=== PATIENT | female | born 1935 | race Hispanic/Latino ===

== ENCOUNTER 2017-08-03 00:13 | Emergency (ER) | payer MEDICARE, OTHER ==
[2017-08-03 00:14] VITALS: BMI 36.6
[2017-08-03 01:15] VITALS: BP 142/80; PULSE 94; RESP 18; TEMP 97.6; O2SAT 97
--- NOTE | 2017-08-03 01:33 | ED PDOC ---
Arrival/HPI - General Chief Complaint: High Blood Sugar Time Seen by Provider: 08/03/17 01:11 Historian: Patient - History of Present Illness Narrative History of Present Illness (Text): 08/03/17 01:31 Naheed Vicente is an 82 year old female, whose past medical history includes hypertension, pacemaker, diabetes, and cholecystectomy, who presents to the emergency department complaining of high blood sugar, anxiety, and headaches today. Patient denies any fever, chills, chest pain, shortness of breath, nausea , vomiting, diarrhea, back pain, neck pain, headache, dizziness, or any other complaints. Time/Duration: Prior to Arrival Symptom Onset: Gradual Symptom Course: Unchanged Activities at Onset: Light Context: Home Past Medical History - Provider Review Nursing Documentation Reviewed: Yes - Infectious Disease Hx of Infectious Diseases: None - Tetanus Immunization Tetanus Immunization: Unknown - Reproductive Menopause: Yes - Cardiac Hx Hypertension: Yes Hx Pacemaker: Yes (11/2008) - Pulmonary Hx Respiratory Disorders: No - Neurological Hx Neurological Disorder: No - HEENT Hx HEENT Disorder: No - Renal Hx Renal Disorder: No - Endocrine/Metabolic Hx Endocrine Disorders: No Hx Diabetes Mellitus Type 2: Yes - Hematological/Oncological Hx Blood Disorders: No - Integumentary Hx Dermatological Disorder: No - Musculoskeletal/Rheumatological Hx Arthritis: Yes - Gastrointestinal Hx Gastrointestinal Disorders: No - Genitourinary/Gynecological Hx Genitourinary Disorders: No - Psychiatric Hx Depression: No Hx Emotional Abuse: No Hx Physical Abuse: No Hx Substance Use: No - Surgical History Hx Cholecystectomy: Yes Other/Comment: pacemaker/aortic heart valve - Suicidal Assessment Feels Threatened In Home Enviroment: No Family/Social History - Physician Review Nursing Documentation Reviewed: Yes Family/Social History: Unknown Family HX Smoking Status: Never Smoked Hx Alcohol Use: No Hx Substance Use: No Hx Substance Use Treatment: No Allergies/Home Meds Allergies/Adverse Reactions: Allergies No Known Allergies Allergy (Verified 08/03/17 01:16) Home Medications: Home Meds Medication Instructions Recorded Confirmed Atorvastatin [Lipitor] 20 mg PO DAILY 03/11/13 08/03/17 Fenofibrate [Tricor] 145 mg PO DAILY 03/11/13 08/03/17 GlipiZIDE [Glucotrol] 5 mg PO TID 03/11/13 08/03/17 SITagliptin [Januvia] 25 mg PO DAILY 03/11/13 08/03/17 Warfarin [Coumadin] 20 mg PO DAILY 03/11/13 08/03/17 ALPRAZolam [Xanax] 0.25 mg PO Q6 PRN 08/03/17 08/03/17 Calcium Carbonate [Caltrate 600] 600 mg PO DAILY 08/03/17 08/03/17 Calcium/Magnesium [Calcium with 1 each PO DAILY 08/03/17 08/03/17 Magnesium Tab] Cyanocobalamin (Vitamin B-12) 1,000 mcg PO DAILY 08/03/17 08/03/17 [Vitamin B-12] Digoxin [Lanoxin] 0.25 mg PO DAILY 08/03/17 08/03/17 Furosemide [Lasix] 40 mg PO DAILY 08/03/17 08/03/17 Gabapentin [Neurontin] 100 mg PO BID 08/03/17 08/03/17 GlipiZIDE [Glipizide] 5 mg PO TID 08/03/17 08/03/17 Metoprolol Tartrate [Lopressor] 50 mg PO BID 08/03/17 08/03/17 Valsartan [Diovan] 320 mg PO DAILY 08/03/17 08/03/17 Review of Systems - Physician Review All systems were reviewed & negative as marked: Yes - Review of Systems Constitutional: Normal Eyes: Normal ENT: Normal Respiratory: Normal. absent: SOB, Cough Cardiovascular: Normal. absent: Chest Pain Gastrointestinal: Normal. absent: Abdominal Pain, Diarrhea, Nausea, Vomiting Genitourinary Female: Normal. absent: Dysuria, Frequency, Hematuria, Urine Output Changes Musculoskeletal: Normal. absent: Back Pain, Neck Pain Skin: Normal. absent: Rash Neurological: Headache Endocrine: Normal Hemo/Lymphatic: Normal Psychiatric: Anxiety Physical Exam Vital Signs Reviewed: Yes Vital Signs Temp Pulse Resp BP Pulse Ox 08/03/17 01:10 97.6 F 94 H 18 142/80 97 Temperature: Afebrile Blood Pressure: Normal Pulse: Regular Respiratory Rate: Normal Appearance: Positive for: Well-Appearing, Non-Toxic, Comfortable Pain Distress: None Mental Status: Positive for: Alert and Oriented X 3 Finger Stick Blood Glucose: 215 - Systems Exam Head: Present: Atraumatic, Normocephalic Pupils: Present: PERRL Extroacular Muscles: Present: EOMI Conjunctiva: Present: Normal Mouth: Present: Moist Mucous Membranes Neck: Present: Normal Range of Motion Respiratory/Chest: Present: Clear to Auscultation, Good Air Exchange. No: Respiratory Distress, Accessory Muscle Use Cardiovascular: Present: Regular Rate and Rhythm, Normal S1, S2. No: Murmurs Abdomen: Present: Normal Bowel Sounds. No: Tenderness, Distention, Peritoneal Signs Back: Present: Normal Inspection Upper Extremity: Present: Normal Inspection. No: Cyanosis, Edema Lower Extremity: Present: Normal Inspection. No: Edema Neurological: Present: GCS=15, CN II-XII Intact, Speech Normal Skin: Present: Warm, Dry, Normal Color. No: Rashes Psychiatric: Present: Alert, Oriented x 3, Normal Insight, Normal Concentration Medical Decision Making ED Course and Treatment: 08/03/17 01:34 Impression: 82 year old female who presents to the emergency department complaining of high blood sugar, anxiety, and headaches today. Plan: -- Ultram -- Reassess and disposition Progress Notes: - Lab Interpretations Lab Results: Lab Results 08/03/17 01:16: POC Glucose (mg/dL) 215 H - Medication Orders Current Medication Orders: Discontinued Medications Tramadol HCl (Ultram) 50 mg PO STAT STA Stop: 08/03/17 01:28 Last Admin: 08/03/17 01:43 Dose: 50 mg MAR Pain Assessment Document 08/03/17 01:43 RG (Rec: 08/03/17 01:53 RG [id number]) Pain Reassessment Is this a pain reassessment? Yes Presence of Pain Presence of Pain Yes Pain Scale Used Pain Scale Used Numeric Location Upper or Lower Upper Pain Location Body Magnetic Healer Description Description Constant Intensity of Pain at present 6 - Scribe Statement The provider has reviewed the documentation as recorded by the Scribe Documented by Sofiya Daniels acting as a scribe for Gianfranco Bonds MD. Disposition/Present on Arrival - Present on Arrival Any Indicators Present on Arrival: No History of DVT/PE: No History of Uncontrolled Diabetes: No Urinary Catheter: No History of Decub. Ulcer: No History Surgical Site Infection Following: None - Disposition Have Diagnosis and Disposition been Completed?: Yes Diagnosis: Diabetes mellitus Disposition: HOME/ ROUTINE Disposition Time: 01:50 Condition: GOOD Discharge Instructions (ExitCare): Type 2 Diabetes Forms: [employer] ([place])
== END 2017-08-03 01:49 | disposition home or self-care (01) ==
LOC: ED 00:13
DX: E11.8 Type 2 diabetes mellitus with unspecified complications (principal); I10 Essential (primary) hypertension; Z95.0 Presence of cardiac pacemaker

== ENCOUNTER 2018-05-31 10:18 | Outpatient (CLI) | payer MEDICARE, OTHER | END 2018-05-31 10:19 | disposition home or self-care (01) | LOC: RAD 10:18 ==